=== PATIENT | male | born 1965 | race Caucasian/White ===

== ENCOUNTER 2020-09-09 07:57 | Outpatient (CLI) | payer BC ==
[2020-09-09] VITALS (13 sets, daily range): BP systolic 132–163; BP diastolic 68–94
[~2020-09-09] VITALS: Ht 198.1 cm; Wt 113.4 kg
[~2020-09-09 07:57] MED LIST: CETI10CA PO; DOCU-109 PO; HYDR-2761 PO; LEVO500T59 PO; LISI2.5T PO; OMEG-57 PO
[2020-09-09 08:33] LABS: BASO % 1 % (0-3); EOS # 0.3 x10^3/uL (0.0-0.7); EOS % 7 % (0-3); HEMATOCRIT 40.8 % (39.0-53.0); HEMOGLOBIN 13.9 g/dL (13.0-17.5); LYMPH # 1.2 x10^3/uL (1.0-4.8); LYMPH % 28 % (24-48); MEAN CORPUSCULAR HEMOGLOBIN 31 pg (25-35); MEAN CORPUSCULAR HGB CONC 34 g/dL (31-37); MEAN CORPUSCULAR VOLUME 91 fL (79-100); MONO # 0.4 x10^3/uL (0.0-1.1); MONO % 9 % (0-9); NEUT # 2.3 x10^3/uL (1.8-7.7); NEUT % 55 % (31-73); PLATELET COUNT 190 x10^3/uL (140-400); RED CELL DISTRIBUTION WIDTH 14.5 % (11.5-14.5); WHITE BLOOD COUNT 4.1 x10^3/uL (4.0-11.0)
[2020-09-09 08:51] LABS: PROTHROMBIN TIME PATIENT 12.9 SEC (11.7-14.0)
[2020-09-09] MEDS ORDERED: LIDOCAINE WITH 8.4% SOD BICARB 3 ML DISP.SYRIN. ONE (09:19)
[2020-09-09] MEDS ORDERED: MIDAZOLAM HCL/PF 2 MG/2 ML VIAL. ONE (09:33)
[2020-09-09] MEDS ORDERED: fentaNYL PF VIAL 100 MCG/2 ML VIAL ONE (09:33)
[2020-09-09] MEDS ORDERED: MIDAZOLAM HCL/PF 2 MG/2 ML VIAL. IV ONE (10:15)
[2020-09-09] MEDS ORDERED: LIDOCAINE WITH 8.4% SOD BICARB 3 ML DISP.SYRIN. IJ ONE (10:15)
[2020-09-09] MEDS ORDERED: fentaNYL PF VIAL 100 MCG/2 ML VIAL IV ONE (10:15)
--- NOTE | 2020-09-09 12:41 | NUR ---
Discharge Note: MARYANN RIVERA Discharge instructions and discharge home medications reviewed with Patient and a copy given. All questions have been answered and understanding verbalized. The following instructions and handouts were given: adult moderate sedation,incision care and lung biopsy Discontinued lines and drains: Peripheral IV intact. Patient discharged to Home or Self Care withSpousevia Wheelchair
--- NOTE | 2020-09-09 14:52 | RAD ---
09/09/2020 12:47 PM Procedure: CT-guided biopsy, left upper lobe nodule Clinical Indication: LEFT LUNG NODULE. History of renal cell cancer. Discussion: The procedure was explained in its entirety to the patient or the patients designated international representative by a member of the treatment team, including a discussion of the risks, benefits and commonly accepted alternatives to the procedure, as well as the expected consequences of no therapy whatsoever. Discussion of the risks included, but was not limited to, those that are most frequent and those that are rare but possibly severe or life-threatening, as well as the possibility of unforeseen complications. All elements of maximal sterile barrier technique including the use of a cap, mask, sterile gown, sterile gloves, large sterile sheet, appropriate hand hygiene, and 2% chlorhexidine for cutaneous antisepsis (or acceptable alternative antiseptic per current guidelines) were followed for this procedure. The patient was placed in the supine position. A timeout procedure was performed. 1% lidocaine was administered for local anesthesia. Under intermittent CT guidance a 17-gauge needle was advanced to the nodule left upper lobe on anterior approach. Core biopsy samples were obtained. [place] were removed. Mild perilesional hemorrhage was noted without pneumothorax. Sterile dressings were applied. Patient tolerated the procedure well and remained hemodynamically stable throughout. The procedures performed under conscious sedation including continuous cardiopulmonary monitoring via dedicated sedation nurse. Dkud-et-rabe sedation time: 33 minutes Impression: CT-guided biopsy, left upper lobe nodule PQRS Compliance Statement: One or more of the following individualized dose reduction techniques were utilized for this examination: 1. Automated exposure control 2. Adjustment of the mA and/or kV according to patient size 3. Use of iterative reconstruction technique
--- NOTE | 2020-09-09 15:57 | RAD ---
EXAM: XR CHEST 1V INDICATION: Reason: LUNG BIOPSY / Spl. Instructions: / History: . TECHNIQUE: Single view COMPARISON: Chest x-ray of 08/20/2020 FINDINGS: The heart size is normal. The great vessels appear unremarkable. There is no hilar or mediastinal mass. Lungs show no new infiltrates. There is a nodule in the left midlung that is partly obscured by the s capular tip on this exam. There is no pleural effusion or pneumothorax. There are no significant osseous abnormalities. IMPRESSION: No pneumothorax post biopsy. Electronically signed by: Jeff Ang MD (09/09/2020 3:55 PM) [id number]
--- NOTE | 2020-09-10 17:03 | NUR ---
IP: Informed pt of positive PCR on COVID test. Pt states he had COVID 07/22/20 and has now received both doses of the the vaccine. Instructed him he would not require quarantine and could test positive for a few months. Pt verbalized understanding.
== END 2020-09-09 12:35 | disposition home or self-care (01) ==
LOC: INTRAD 07:57
PROVIDERS: ATTEND Internal Medicine Critical Care Medicine
DX: R91.8 Other nonspecific abnormal finding of lung field (principal); K21.9 Gastro-esophageal reflux disease without esophagitis; Z79.899 Other long term (current) drug therapy; Z72.89 Other problems related to lifestyle; Z98.890 Other specified postprocedural states; Z88.0 Allergy status to penicillin; Z20.822 Contact with and (suspected) exposure to COVID-19
CPT/HCPCS: 32408; 36415; 71045; 85025; 85610; 87426; 99152; 99153; C9803; J2250; J3010; J3490; U0003